=== PATIENT | female | born 1940 ===

== ENCOUNTER 2025-06-15 11:21 | Outpatient (AMB) | payer MEDICARE, BC, SELFPAY ==
--- OUTSIDE RECORDS SUMMARY | 2025-06-15 12:39 | XMS_ITS | Encounter Summary ---
Author Organization [facility] Address [address] [place] [address] Phone Care Team Providers Care Fleet Dispatch Manager Name Role Phone Anisa Cummings MD, MPH Primary Care Provider + Encounter Details Date Type Department Care Team (Late st Contact Info) Description 05/27/2021 Procedure Pass [facility], [address] [address] Social History Tobacco Use Types Packs/Day Years Used Date Smoking Tobacco: Never Smokeless Tobacco: Never Alcohol Use Standard Drinks/Week Comments Yes 0 (1 standard drink = 0.6 oz pur e alcohol) rare Comments No Sex and Gender Information Value Date Recorded Sex Assigned at Female 09/15/2024 1:39 PM EST Legal Sex Female 10:12 PM EDT Gender Identity Female 09/15/2024 1:39 PM EST Sexual Orientation Not on file documented as of this encounter Plan of Treatment Not on file documented as of this encounter Visit Diagnoses Not on filedocumented in this encounter Care Teams Fleet Dispatch Manager Relationship Specialty Start Date End Date Anisa Cummings MD, MPH [address] [place] [phone] [email or web address] PCP - General Family Medicine 01/11/18 documented as of this encounter Additional Source Comments The information contained in this document represents components of the legal health record. It is not the complete legal health record.[facility]
== END 2025-06-15 11:27 | disposition home or self-care (01) ==
LOC: HO.HMGAL 11:21
PROVIDERS: Visit Provider Registered Nurse Emergency
DX: J30.89 Other allergic rhinitis (principal)
CPT/HCPCS: 95117; 95165

== ENCOUNTER 2025-07-13 12:46 | Outpatient (AMB) | payer MEDICARE, BC, SELFPAY ==
--- OUTSIDE RECORDS SUMMARY | 2025-07-13 17:28 | XMS_ITS | Encounter Summary ---
Author Organization [facility] Address [address] [facility] [address] [place] [address] Phone Care Team Providers Care Cat Scan Tech Name Role Phone Anisa Cummings MD, MPH Primary Care Provider + Encounter Details Date Type Department Care Team (Late st Contact Info) Description 05/22/2022 Procedure Pass [address] [address] Social History Tobacco Use Types Packs/Day Years Used Date Smoking Tobacco: Never Smokeless Tobacco: Never Alcohol Use Standard Drinks/Week Comments Yes 0 (1 standard drink = 0.6 oz pure alcohol) Glass of wine 3 to 4 times a year Comments No Sex and Gender Information Value Date Recorded Sex Assigned at Female 09/15/2024 1:39 PM EST Legal Sex Female 10:12 PM EDT Gender Identity Female 09/15/2024 1:39 PM EST Sexual Orientation Not on file documented as of this encounter Plan of Treatment Upcoming Encounters Date Type Department Care Team (Late st Contact Info) Description 07/09/2025 Procedure Pass [address] [address] 03/01/2026 1:15 PM EDT Appointment [address] [address] Phs Mammo Self, Referral documented as of this encounter Visit Diagnoses Not on filedocumented in this encounter Care Teams Cat Scan Tech Relationship Specialty Start Date End Date Anisa Cummings MD, MPH [address] [place] [phone] [email or web address] PCP - General Family Medicine 01/11/18 documented as of this encounter Additional Source Comments The information contained in this document represents components of the legal health record. It is not the complete legal health record.[facility]
--- OUTSIDE RECORDS SUMMARY | 2025-07-13 17:28 | XMS_ITS | Encounter Summary ---
Author Organization [facility] Address [address] [address] Phone Care Team Providers Care Satellite Communications Operator Name Role Phone Anisa Cummings MD, MPH Primary Care Provider + Encounter Details Date Type Department Care Team (Late Contact Info) Description 05/27/2021 Procedure Pass [address] [address] Social History Tobacco Use Types Packs/Day Years [...] st Contact Info) Description 07/09/2025 Procedure Pass [address] [address] 03/01/2026 1:15 PM EDT Appointment [address] [address] Phs Mammo Self, Referral documented as of this encounter Visit Diagnoses Not on filedocumented in this encounter Care Teams Satellite Communications Operator Relationship Specialty Start Date End Date Anisa Cummings MD, MPH [address] [place] [phone] [email or web address] PCP - General Family Medicine 01/11/18 documented as of this encounter Additional Source Comments The information contained in this document represents components of the legal health record. It is not the complete legal health record.[facility]
--- OUTSIDE RECORDS SUMMARY | 2025-07-13 17:28 | XMS_ITS | Encounter Summary ---
Author Organization [facility] Address [address] [facility] [address] [place] [address] Phone Care Team Providers Care Catalyst Plant Supervisor Name Role Phone Anisa Cummings MD, MPH Primary Care Provider + Encounter Details Date Type Department Care Team (Late st Contact Info) Description 05/31/[address] [address] Social History Tobacco Use Types Packs/Day Years Used Date Smoking Tobacco: Never Smokeless Tobacco: Never Alcohol Use Standard Drinks/Week Comments Yes 0 (1 standard drink = 0.6 oz pure alcohol) Glass of wine 3 to 4 times a year Education Answer Date Recorded Are you interested in more education? Not on sybil e 02/23/2023 Are you concerned about learning? Not on file 02/23/2023 No 02/23/2023 No 02/23/2023 Digital Access Answer Date Recorded No 03/24/2023 No 03/24/2023 Reliable internet access at home? Not on file 03/24/2023 Device with a working camera? Not on file Comments No Sex and Gender Information Value Date Recorded Sex Assigned at Female 09/15/2024 1:39 PM EST Legal Sex Female 10:12 PM EDT Gender Identity Female 09/15/2024 1:39 PM EST Sexual Orientation Not on file documented as of this encounter Plan of Treatment Upcoming Encounters Date Type Department Care Team (Late st Contact Info) Description 07/09/[address] [address] 03/01/2026 1:15 PM EDT Appointment [facility], Mammography- [facility] [address] [place] [address] Phs Mammo Self, Referral documented as of this encounter Visit Diagnoses Not on filedocumented in this encounter Care Teams Catalyst Plant Supervisor Relationship Specialty Start Date End Date Anisa Cummings MD, MPH [address] [place] [phone] [email or web address] PCP - General Family Medicine 01/11/18 documented as of this encounter Additional Source Comments The information contained in this document represents components of the legal health record. It is not the complete legal health record.[facility]
--- OUTSIDE RECORDS SUMMARY | 2025-07-13 17:28 | XMS_ITS | Encounter Summary ---
Author Organization [facility] Address [address] [facility] [address] [place] [address] Phone Care Team Providers Care Roller Varnisher Name Role Phone Anisa Cummings MD, MPH Primary Care Provider + Encounter Details Date Type Department Care Team (Late Contact Info) Description 01/25/2021 Procedure Pass [facility] Endoscopy Admitting Dept Virtual Department [address] [place] [phone] Social History Tobacco Use Types Packs/Day Years [...] Encounters Date Type Department Care Team (Late Contact Info) Description 07/09/2025 Procedure Pass [address] [address] 03/01/2026 1:15 PM EDT Appointment [address] [address] Phs Mammo Self, Referral documented as of this encounter Visit Diagnoses Not on filedocumented in this encounter Care Teams Roller Varnisher Relationship Specialty Start Date End Date Anisa Cummings MD, MPH [address] [place] [phone] [email or web address] PCP - General Family Medicine 01/11/18 documented as of this encounter Additional Source Comments The information contained in this document represents components of the legal health record. It is not the complete legal health record.[facility]
--- OUTSIDE RECORDS SUMMARY | 2025-07-13 17:28 | XMS_ITS | Encounter Summary ---
Author Organization [facility] Address [address] [place] [address] Phone Care Team Providers Care Agriculture Laborer Name Role Phone Anisa Cummings MD, MPH Primary Care Provider + Encounter Details Date Type Department Care Team (Latest Contact Info) Description 07/09/2025 Transcribe Orders Virtual Department [address] [place] [address] Self-Referred, Patient Breast screening (Primary Dx) Social History Tobacco Use Types Packs/Day Years [...] with a working camera? Not on file Intimate Partner Violence Answer Date R ecorded Are you denied basic needs s uch as food, clothing, or medical care? No 09/15/2024 In the past 12 months have y ou been in a relationship with a person who hurts, threatens, or tries to control you? No 09/15/2024 Are you denied basic needs s uch as food, clothing, or medical care? No 09/15/2024 In the past 12 months have y ou been in a relationship with a person who hurts, threatens, or tries to control you? No 09/15/2024 Comments No Sex and Gender Information Value Date Recorded Sex Assigned at Female 09/15/2024 1:39 PM EST Legal Sex Female 10:12 PM EDT Gender Identity Female 09/15/2024 1:39 PM EST Sexual Orientation Not on file documented as of this encounter Plan of Treatment Upcoming Encounters Date Type Department Care Team (Late st Contact Info) Description 07/09/2025 Procedure Pass [address] [address] 03/01/2026 1:15 PM EDT Appointment [address] [address] Phs Mammo Self, Referral Scheduled Orders Name Type Priority Associated Diagnoses Orde r Schedule Mammogram Screening (Bilateral) Imaging Routine Breast screening Expected: 08/08/2025, Expires: 07/09/2026 documented as of this encounter Visit Diagnoses Diagnosis Breast screening- Primary Breast screening, unspecified documented in this encounter Care Teams Agriculture Laborer Relationship Specialty Start Date End Date Anisa Cummings MD, MPH [address] [place] [phone] [email or web address] PCP - General Family Medicine 01/11/18 documented as of this encounter Additional Source Comments The information contained in this document represents components of the legal health record. It is not the complete legal health record.[facility]
--- OUTSIDE RECORDS SUMMARY | 2025-07-13 17:28 | XMS_ITS | Encounter Summary ---
Author Organization [facility] Address [address] [facility] [address] [place] [address] Phone Care Team Providers Care Photovoltaic Solar Cell Designer Name Role Phone Anisa Cummings MD, MPH Primary Care Provider + Encounter Details Date Type Department Care Team (Late st Contact Info) Description 09/15/2024 Procedure Pass [facility], Ct Scan - [address] [address] Social History Tobacco Use Types Packs/Day Years [...] on file documented as of this encounter Functional Status * Calculated C-SSRS Risk Score (Lifetime/Recent) Answer Date of Assessment Author No Risk Indicated 09/15/2024 1:39 PM EST Priya Courtney, GISELLA * [place] Suicide Severity Rating Scale (Screener/Recent Self-Report) Question Answer Date of Assessment Author 1. Wish to be (Past 1 Month) No 024 1:39 PM Priya Armstrong, GISELLA 2. Non-Specific Active Suici shereen Thoughts (Past 1 Month) No 09/15/2024 1:39 PM Priya Armstrong, GISELLA 6. Suicidal Behavior (Lifetime) No 1:39 PM Priya Armstrong, GISELLA documented as of this encounter Plan of Treatment Upcoming Encounters Date Type Department Care Team (Late st Contact Info) Description 07/09/2025 Procedure Pass [address] [address] 03/01/2026 1:15 PM EDT Appointment [address] [address] Phs Mammo Self, Referral documented as of this encounter Visit Diagnoses Not on filedocumented in this encounter Care Teams Photovoltaic Solar Cell Designer Relationship Specialty Start Date End Date Anisa Cummings MD, MPH [address] [place] [phone] [email or web address] PCP - General Family Medicine 01/11/18 documented as of this encounter Additional Source Comments The information contained in this document represents components of the legal health record. It is not the complete legal health record.[facility]
--- OUTSIDE RECORDS SUMMARY | 2025-07-13 17:28 | XMS_ITS | Encounter Summary ---
Author Organization [facility] Address [address] [address] Phone Care Team Providers Care Transmission And Coordination Engineer Name Role Phone Anisa Cummings MD, MPH Primary Care Provider + Encounter Details Date Type Department Care Team (Late st Contact Info) Description 12/24/2019 Ancillary Orders Virtual Department [address] [place] [address] Anisa Cummings MD, MPH [address] [place] [phone] [email or web address] Breast screening Social History Tobacco Use Types Packs/Day Years Used Date Smoking Tobacco: Never Smokeless Tobacco: Never Comments No Sex and Gender Information Value Date Recorded Sex Assigned at Female 09/15/2024 1:39 PM EST Legal Sex Female 10:12 PM EDT Gender Identity Female 09/15/2024 1:39 PM EST Sexual Orientation Not on file documented as of this encounter Plan of Treatment Upcoming Encounters Date Type Department Care Team (Late st Contact Info) Description 07/09/2025 Procedure Pass [address] [address] 03/01/2026 1:15 PM EDT Appointment [address] [address] Phs Mammo Self, Referral documented as of this encounter Results * BI MAMMOGRAM SCREENING WITH TOMOSYNTHESIS WITH CAD (BILATERAL) (07/27/2020 11:59 AM EDT) Anatomical Region Laterality Modality Breast Left, Breast Right, Breast Bilateral Bila teral Mammography 07/27/2020 1:27 PM EDT Impressions 07/27/2020 1:31 PM EDT No findings suspicious for malignancy are identified. In the absence of a worrisome palpable abnormality, annual screening mammography is recommended. BI-RADS CATEGORY 1 - NEGATIVE DENSITY: There are scattered fibroglandular densities. Narrative 07/27/2020 1:31 PM EDT COMPARISON: 02/12/2014 through 02/24/2019 Bilateral 3-D tomosynthesis with 2-D reconstructions in the CC and MLO projection. Computer-aided detection system also utilized. No new mass, asymmetry, architectural distortion or suspicious calcifications have become apparent on either side. Anisa Cummings MD, MPH IMG MG EXAMS Final Re sult documented in this encounter Visit Diagnoses Diagnosis Breast screening Breast screening, unspecified Breast screening Breast screening, unspecified documented in this encounter Care Teams Transmission And Coordination Engineer Relationship Specialty Start Date End Date Anisa Cummings MD, MPH [address] [place] [phone] [email or web address] PCP - General Family Medicine 01/11/18 documented as of this encounter Additional Source Comments The information contained in this document represents components of the legal health record. It is not the complete legal health record.[facility]
--- OUTSIDE RECORDS SUMMARY | 2025-07-13 17:28 | XMS_ITS | Encounter Summary ---
Author Organization [facility] Address [address] [facility] [address] [place] [address] Phone Care Team Providers Care Meat Seafood Associate Name Role Phone Anisa Cummings MD, MPH Primary Care Provider + Encounter Details Date Type Department Care Team (Latest Contact Info) Description 05/31/2023 Transcribe Orders Virtual Department [address] [place] [address] Anisa Cummings MD, MPH [address] [place] [address] [email or web address] Breast screening (Primary Dx) Social History Tobacco [...] st Contact Info) Description 07/09/2025 Procedure Pass [address] [address] 03/01/2026 1:15 PM EDT Appointment [facility] [address] [place] [address] Phs Mammo Self, Referral documented as of this encounter Results * BI MAMMOGRAM SCREENING WITH TOMOSYNTHESIS WITH CAD (BILATERAL) (08/01/2023 1:56 PM EDT) Anatomical Region Laterality Modality Breast Left, Breast Right, Breast Bilateral Bila teral Mammography 08/03/2023 4:00 PM EDT Impressions 08/03/2023 4:02 PM EDT No findings suspicious for malignancy are identified. In the absence of a worrisome palpable abnormality, annual screening mammography is recommended. BI-RADS CATEGORY: 1 - Negative. DENSITY: There are scattered fibroglandular densities. Narrative 08/03/2023 4:02 PM EDT AVAILABLE COMPARISON: 07/31/2022 through 02/19/2017 Bilateral 3-D tomosynthesis with 2-D reconstructions in the CC and MLO projection. Computer-aided detection system was utilized. No new mass, asymmetry, architectural distortion or suspicious calcifications have become apparent in either breast. Procedure Note Adalberto Cao MD - 08/03/2023 AVAILABLE COMPARISON: 07/31/2022 through 02/19/2017 Bilateral 3-D tomosynthesis with 2-D reconstructions in the CC and MLOprojection. Computer-aided detection system was utilized. No new mass, asymmetry, architectural distortion or suspiciouscalcifications have become apparent in either breast. IMPRESSION: No findings suspicious for malignancy are identified. In the absence of aworrisome palpable abnormality, annual screening mammography isrecommended. BI-RADS CATEGORY: 1 - Negative. DENSITY: There are scattered fibroglandular densities. Anisa Cummings MD, MPH IMG MG EXAMS Final Re sult documented in this encounter Visit Diagnoses Diagnosis Breast screening- Primary Breast screening, unspecified Breast screening Breast screening, unspecified documented in this encounter Care Teams Meat Seafood Associate Relationship Specialty Start Date End Date Anisa Cummings MD, MPH [address] [place] [phone] [email or web address] PCP - General Family Medicine 01/11/18 documented as of this encounter Additional Source Comments The information contained in this document represents components of the legal health record. It is not the complete legal health record.[facility]
--- OUTSIDE RECORDS SUMMARY | 2025-07-13 17:28 | XMS_ITS | Clinical Summary ---
Author Organization [facility] Address [address] [facility] [address] [place] [address] Phone Care Team Providers Care Naphthalene Operator Name Role Phone Anisa Cummings MD, MPH Primary Care Provider + Allergies Active Allergy Reactions Criticality Noted Date Comments Codeine 09/04/2019 Penicillins 09/04/2019 Medications NIFEdipine (PROCARDIA XL) 90 MG 24 hr tablet Take 90 mg by mouth daily. Active levothyroxine (SYNTHROID, LEVOTHROID) 100 MCG tablet Take 100 mcg by mouth every morning. Active simvastatin (ZOCOR) 20 MG tablet Take 20 mg by mouth nightly at bedtime. Active lisinopril (PRINIVIL,ZESTR IL) 20 MG tablet Take 20 mg by mouth daily. Active mirabegron (MYRBETRIQ) 25 mg Tb24 Take 25 mg by mouth daily. Active multivitamin-mi nerals-lutein (CENTRUM SILVER) Tab Take 1 tablet by mouth daily. Active Encounters Date Type Department Care Team Description 07/09/2025 Transcribe Orders Virtual Department [address] [place] [address] Self-Referred, Patient Breast screening (Primary Dx) from Last 3 Months Immunizations Immunization Administration Dates Next Due COVID-19 (Pre-08/20) Pfizer Vaccine, mRNA, PF 02/05/2021,01/15/2021 Tdap 09/15/2024, 4(Deferred: Contraindication) Family History Medical History Relation Comments Breast cancer Neg Hx Social History Tobacco Use Types Packs/Day Years [...] PM EST Sexual Orientation Not on file Last Filed Vital Signs Vital Sign Reading Time Taken Comments Blood Pressure 121/74 09/15/2024 4:29 PM EST Pulse 92 09/15/2024 4:29 PM EST Temperature 35.8 C (96.5 F) 09/15/2024 4:29 PM EST Respiratory Rate 20 09/15/2024 4:29 PM EST Oxygen Saturation 98% 09/15/2024 4:29 PM EST Inhaled Oxygen Concentration - - Weight 59.9 kg (132 lb) 01/25/2021 10:45 AM EDT Height 167.6 cm (5' 6 ) 09/15/2024 1:42 PM EST Body Mass Index 21.31 01/25/2021 10:45 AM EDT Plan of Treatment Upcoming Encounters Date Type Department Care Team (Late st Contact Info) Description 07/09/2025 Procedure Pass [address] [address] 03/01/2026 1:15 PM EDT Appointment [address] [address] Phs Mammo Self, Referral Health Maintenance Due Date Last Done Comments CREATININE LEVEL 1941 POTASSIUM LEVEL 1941 TSH LEVEL 1941 DEPRESSION SCREENING 1953 OSTEOPOROSIS SCREENING INITIAL (ONE-TIME) 2006 ZOSTER VACCINES (2 of 3) 11/27/2007 10/02/2007 RSV VACCINE (1 - 1-dose 75+ series) 2016 PNEUMOCOCCAL VACCINES (50+ years) (2 of 2 - PPSV23) 04/20/2017 04/20/2016 INFLUENZA VACCINE (#1) 2025 , 08/19/2022, 08/19/2021, Additional history exists COVID-19 VACCINE ( season) 2025 08/09/2023, 08/22/2022, 08/19/2021, Additional history exists Adult Td,Tdap Booster 09/15/2034 09/15/2024 , 10/28/2020, 02/17/2010, Additional history exists HEPATITIS A VACCINES Aged Out No long er eligible based on patient's age to complete this topic HIB VACCINES Aged Out No longer eligi ble based on patient's age to complete this topic MENINGOCOCCAL VACCINES (ACWY) Aged Out No longer eligible based on patient's age to complete this topic MENINGOCOCCAL VACCINES (B) Aged Out N o longer eligible based on patient's age to complete this topic Medical Devices Not on file Insurance MEDICARE PART A & B [facility] OUT [facility] INDEMNITY MEDICARE PART A & B [facility] INDEMNITY MEDICARE PART A & B [facility] OUT [facility] INDEMNITY MEDICARE PART A & B [facility] OUT OF STATE INDEMNITY MEDICARE PART A & B OUT [facility] INDEMNITY MEDICARE PART A & B [facility] OUT [facility] INDEMNITY MEDICARE PART A & B [facility] INDEMNITY MEDICARE PART A & B [facility] OUT [facility] INDEMNITY MEDICARE PART A & B [facility] OUT [facility] INDEMNITY Care Teams Naphthalene Operator Relationship Specialty Start Date End Date Anisa Cummings MD, MPH [address] [place] [phone] [email or web address] PCP - General Family Medicine 01/11/18 Additional Source Comments The information contained in this document represents components of the legal health record. It is not the complete legal health record.[facility]
--- OUTSIDE RECORDS SUMMARY | 2025-07-13 17:28 | XMS_ITS | Encounter Summary ---
Author Organization [facility] Address [address] [facility] [address] [place] [address] Phone Care Team Providers Care Negative Stripper Name Role Phone Anisa Cummings MD, MPH Primary Care Provider + Encounter Details Date Type Department Care Team (Latest Contact Info) Description 05/29/2024 Transcribe Orders Virtual Department [address] [place] [address] Anisa Cummings MD, MPH [address] [place] [address] [email or web address] Breast screening (Primary Dx) Social History Tobacco [...] st Contact Info) Description 07/09/2025 Procedure Pass [address] [address] 03/01/2026 1:15 PM EDT Appointment [address] [address] Phs Mammo Self, Referral documented as of this encounter Results * BI MAMMOGRAM SCREENING WITH TOMOSYNTHESIS WITH CAD (BILATERAL) (09/15/2024 12:46 PM EST) Anatomical Region Laterality Modality Breast Left, Breast Right, Breast Bilateral Bila teral Mammography 09/16/2024 8:37 AM EST Impressions 09/16/2024 8:38 AM EST No mammographic evidence of malignancy in either breast. Annual screening mammography is recommended. BI-RADS 1 NEGATIVE The patient will be notified of the results and recommendations. Narrative 09/16/2024 8:38 AM EST BI MAMMOGRAM SCREENING WITH TOMOSYNTHESIS WITH CAD (BILATERAL) Additional patient information: Screening. COMPARISON: Comparison is made with relevant prior imaging. Breast composition: There are scattered areas of fibroglandular density. FINDINGS: No abnormal masses, suspicious calcifications, or other significant findings are identified mammographically in either breast. Procedure Note Maite Ramsay MD - 09/16/2024 BI MAMMOGRAM SCREENING WITH TOMOSYNTHESIS WITH CAD (BILATERAL) Additional patient information: Screening. COMPARISON: Comparison is made with relevant prior imaging. Breast composition: There are scattered areas of fibroglandular density. FINDINGS: No abnormal masses, suspicious calcifications, or other significantfindings are identified mammographically in either breast. IMPRESSION: No mammographic evidence of malignancy in either breast. Annual screening mammography is recommended. BI-RADS 1 NEGATIVE The patient will be notified of the results and recommendations. Anisa Cummings MD, MPH IMG MG EXAMS Final Re sult documented in this encounter Visit Diagnoses Diagnosis Breast screening- Primary Breast screening, unspecified Breast screening Breast screening, unspecified documented in this encounter Care Teams Negative Stripper Relationship Specialty Start Date End Date Anisa Cummings MD, MPH [address] [place] [phone] [email or web address] PCP - General Family Medicine 01/11/18 documented as of this encounter Additional Source Comments The information contained in this document represents components of the legal health record. It is not the complete legal health record.[facility]
--- OUTSIDE RECORDS SUMMARY | 2025-07-13 17:28 | XMS_ITS | Encounter Summary ---
Author Organization [facility] Address 399 [facility] [address] [place] [address] Phone Care Team Providers Care Aluminum Welder Name Role Phone Anisa Cummings MD, MPH Primary Care Provider + Encounter Details Date Type Department Care Team (Late st Contact Info) Description 12/25/2018 Ancillary Orders Virtual Department [address] [place] [address] Anisa Cummings MD, MPH [address] [place] [phone] [email or web address] Breast screening Social History Tobacco Use Types Packs/Day Years Used Date Smoking Tobacco: Never Assessed Comments No Sex and Gender Information Value Date Recorded Sex Assigned at Female 09/15/2024 1:39 PM EST Legal Sex Female 10:12 PM EDT Gender Identity Female 09/15/2024 1:39 PM EST Sexual Orientation Not on file documented as of this encounter Plan of Treatment Upcoming Encounters Date Type Department Care Team (Late st Contact Info) Description 07/09/2025 Procedure Pass [address] [address] 03/01/2026 1:15 PM EDT Appointment [address] [address] Phs Mammo Self, Referral documented as of this encounter Results * BI MAMMOGRAM SCREENING WITH TOMOSYNTHESIS WITH CAD (BILATERAL) (02/24/2019 11:06 AM EDT) Anatomical Region Laterality Modality Breast Left, Breast Right, Breast Bilateral Bila teral Mammography 02/24/2019 1:39 PM EDT Impressions 02/24/2019 1:40 PM EDT Stable appearance relative to prior imaging. No findings suggestive of malignancy are seen. BI-RADS CATEGORY: 2 - Benign finding. DENSITY: There are scattered fibroglandular densities. POS - [id number] Narrative 02/24/2019 1:40 PM EDT Full-field digital mammography is obtained with computer-aided detection. Comparison with prior imaging from 02/21/2018 is made with older imaging dating back as far as 02/10/2013 also reviewed. There is scattered fibroglandular density evident in the breasts. In addition to 2-D C view imaging, tomosynthesis images are obtained in two projections of each breast. A small nodular density in the outer right breast is unchanged. Scattered coarsened macrocalcifications are also unchanged.. No dominant soft tissue mass of concern, suspicious cluster of calcifications, significant interval skin changes, or architectural distortion is identified. Procedure Note Haja Floyd MD - 02/24/2019 Full-field digital mammography is obtained with computer-aided detection.Comparison with prior imaging from 02/21/2018 is made with older imagingdating back as far as 02/10/2013 also reviewed. There is scattered fibroglandular density evident in the breasts. Inaddition to 2-D C view imaging, tomosynthesis images are obtained in twoprojections of each breast. A small nodular density in the outer right breast is unchanged. Scatteredcoarsened macrocalcifications are also unchanged.. No dominant softtissue mass of concern, suspicious cluster of calcifications, significantinterval skin changes, or architectural distortion is identified. IMPRESSION: Stable appearance relative to prior imaging. No findings suggestive ofmalignancy are seen. BI-RADS CATEGORY: 2 - Benign finding. DENSITY: There are scattered fibroglandular densities. POS - [id number] Anisa Cummings MD, MPH IMG MG EXAMS Final Re sult documented in this encounter Visit Diagnoses Diagnosis Breast screening Breast screening, unspecified Breast screening Breast screening, unspecified documented in this encounter Care Teams Aluminum Welder Relationship Specialty Start Date End Date Anisa Cummings MD, MPH [address] [place] [phone] [email or web address] PCP - General Family Medicine 01/11/18 documented as of this encounter Additional Source Comments The information contained in this document represents components of the legal health record. It is not the complete legal health record.[facility]
--- OUTSIDE RECORDS SUMMARY | 2025-07-13 17:28 | XMS_ITS | Encounter Summary ---
Author Organization [facility] Address [address] [address] Phone Care Team Providers Care Table Machine Operator Name Role Phone Anisa Cummings MD, MPH Primary Care Provider + Encounter Details Date Type Department Care Team (Late st Contact Info) Description 06/29/2020 Procedure Pass [address] [address] Social History Tobacco Use Types Packs/Day Years [...] st Contact Info) Description 07/09/2025 Procedure Pass [address] [address] 03/01/2026 1:15 PM EDT Appointment [address] [address] Phs Mammo Self, Referral documented as of this encounter Visit Diagnoses Not on filedocumented in this encounter Care Teams Table Machine Operator Relationship Specialty Start Date End Date Anisa Cummings MD, MPH [address] [place] [phone] [email or web address] PCP - General Family Medicine 01/11/18 documented as of this encounter Additional Source Comments The information contained in this document represents components of the legal health record. It is not the complete legal health record.[facility]
--- OUTSIDE RECORDS SUMMARY | 2025-07-13 17:28 | XMS_ITS | Encounter Summary ---
Author Organization [facility] Address [address] [employer] [facility] [address] [place] [address] Phone Care Team Providers Care Crankshaft Grinder Name Role Phone Anisa Cummings MD, MPH Primary Care Provider + Encounter Details Date Type Department Care Team (Late st Contact Info) Description 09/15/2024 Procedure Pass [facility], Ct Scan - [address] [address] Social History Tobacco Use Types Packs/Day Years [...] 1:39 PM EST Priya Courtney, GISELLA * [place] Suicide Severity Rating Scale (Screener/Recent Self-Report) Question [...] st Contact Info) Description 07/09/2025 Procedure Pass [address] [address] 03/01/2026 1:15 PM EDT Appointment [address] [address] Phs Mammo Self, Referral documented as of this encounter Visit Diagnoses Not on filedocumented in this encounter Care Teams Crankshaft Grinder Relationship Specialty Start Date End Date Anisa Cummings MD, MPH [address] [place] [phone] [email or web address] PCP - General Family Medicine 01/11/18 documented as of this encounter Additional Source Comments The information contained in this document represents components of the legal health record. It is not the complete legal health record.[facility]
--- OUTSIDE RECORDS SUMMARY | 2025-07-13 17:28 | XMS_ITS | Encounter Summary ---
Author Organization [facility] Address [address] [facility] [address] [place] [address] Phone Care Team Providers Care Script Coordinator Name Role Phone Anisa Cummings MD, MPH Primary Care Provider + Encounter Details Date Type Department Care Team (Late st Contact Info) Description 01/11/2018 Ancillary Orders Virtual Department [address] [place] [address] Anisa Cummings MD, MPH [address] [place] [address] [email or web address] Breast screening Social History Tobacco Use Types Packs/Day Years Used Date Smoking Tobacco: Never Assessed Comments Unknown Sex and Gender Information Value Date Recorded Sex Assigned at Female 09/15/2024 1:39 PM EST Legal Sex Female 10:12 PM EDT Gender Identity Female 09/15/2024 1:39 PM EST Sexual Orientation Not on file documented as of this encounter Plan of Treatment Upcoming Encounters Date Type Department Care Team (Late st Contact Info) Description 07/09/2025 Procedure Pass [address] [address] 03/01/2026 1:15 PM EDT Appointment [address] [address] Phs Mammo Self, Referral documented as of this encounter Results * BI MAMMOGRAM SCREENING WITH TOMOSYNTHESIS WITH CAD (BILATERAL) (02/21/2018 11:29 AM EDT) Anatomical Region Laterality Modality Breast Left, Breast Right, Breast Bilateral Bila teral Mammography 02/21/2018 3:02 PM EDT Impressions 02/21/2018 3:07 PM EDT No mammographic change indicative of malignancy. Annual screening is recommended. BI-RADS CATEGORY: 2 - Benign finding. DENSITY: There are scattered fibroglandular densities. POS -[id number] Narrative 02/21/2018 3:07 PM EDT Bilateral full-field digital screening mammography is obtained and read in conjunction with computer-aided detection. Tomosynthesis as well as 2-D C view imaging of both breasts in two planes also obtained. Comparison made to multiple prior, most recent 02/19/2017, and most remote 02/08/2012. No dominant mass, architectural distortion, worrisome asymmetry, or suspicious calcification is identified. No skin or nipple finding of concern is appreciated. Small waxing and waning nodular areas noted bilaterally. No worrisome lesions seen. Scattered coarse calcifications again noted. Post therapy changes again noted on the left. Procedure Note Darlyn Correia MD - 02/21/2018 Bilateral full-field digital screening mammography is obtained and read inconjunction with computer-aided detection. Tomosynthesis as well as 2-D Cview imaging of both breasts in two planes also obtained. Comparison madeto multiple prior, most recent 02/19/2017, and most remote 02/08/2012. No dominant mass, architectural distortion, worrisome asymmetry, orsuspicious calcification is identified. No skin or nipple finding ofconcern is appreciated. Small waxing and waning nodular areas notedbilaterally. No worrisome lesions seen. Scattered coarse calcificationsagain noted. Post therapy changes again noted on the left. IMPRESSION: No mammographic change indicative of malignancy. Annual screening isrecommended. BI-RADS CATEGORY: 2 - Benign finding. DENSITY: There are scattered fibroglandular densities. POS -[id number] Anisa Cummings MD, MPH IMG MG EXAMS Final Re sult documented in this encounter Visit Diagnoses Diagnosis Breast screening Breast screening, unspecified Breast screening Breast screening, unspecified documented in this encounter Care Teams Script Coordinator Relationship Specialty Start Date End Date Anisa Cummings MD, MPH [address] [place] [phone] [email or web address] PCP - General Family Medicine 01/11/18 documented as of this encounter Additional Source Comments The information contained in this document represents components of the legal health record. It is not the complete legal health record.[facility]
--- OUTSIDE RECORDS SUMMARY | 2025-07-13 17:28 | XMS_ITS | Encounter Summary ---
Author Organization [facility] Address [address] [employer] [address] [place] [address] Phone Care Team Providers Care Senior Electrical Project Manager Name Role Phone Anisa Cummings MD, MPH Primary Care Provider + Encounter Details Date Type Department Care Team (Late st Contact Info) Description 05/29/[address] [address] Social History Tobacco Use Types Packs/Day Years [...] (Late st Contact Info) Description 07/09/[address] [address] 03/01/2026 1:15 PM EDT Appointment [facility], Mammography- [facility] [address] [place] [address] Phs Mammo Self, Referral documented as of this encounter Visit Diagnoses Not on filedocumented in this encounter Care Teams Senior Electrical Project Manager Relationship Specialty Start Date End Date Anisa Cummings MD, MPH [address] [place] [phone] [email or web address] PCP - General Family Medicine 01/11/18 documented as of this encounter Additional Source Comments The information contained in this document represents components of the legal health record. It is not the complete legal health record.[facility]
== END 2025-07-13 12:46 | disposition home or self-care (01) ==
LOC: HO.HMGAL 12:46
PROVIDERS: Visit Provider Registered Nurse Emergency
DX: J30.89 Other allergic rhinitis (principal)
CPT/HCPCS: 95117; 95165

== ENCOUNTER 2025-08-12 11:56 | Outpatient (AMB) | payer MEDICARE, BC, SELFPAY ==
--- OUTSIDE RECORDS SUMMARY | 2025-08-12 15:07 | XMS_ITS | Encounter Summary ---
Author Organization [facility] Address 399 [facility] [address] [place] [address] Phone Care Team Providers Care Vault Clerk Name Role Phone Anisa Cummings MD, MPH Primary Care Provider + Encounter Details Date Type Department Care Team (Late Contact Info) Description 01/25/2021 Procedure Pass [facility] Endoscopy Admitting Dept Virtual Department [address] [place] [address] Social History Tobacco Use Types Packs/Day Years [...] (Late Contact Info) Description 07/09/2025 Procedure Pass [address] [address] 03/01/2026 1:15 PM EDT Appointment [address] [address] Phs Mammo Self, Referral documented as of this encounter Visit Diagnoses Not on filedocumented in this encounter Care Teams Vault Clerk Relationship Specialty Start Date End Date Anisa Cummings MD, MPH [address] [place] [phone] [email or web address] PCP - General Family Medicine 01/11/18 documented as of this encounter Additional Source Comments The information contained in this document represents components of the legal health record. It is not the complete legal health record.[facility]
--- OUTSIDE RECORDS SUMMARY | 2025-08-12 15:07 | XMS_ITS | Encounter Summary ---
Author Organization [facility] Address [address] [employer] [facility] [address] [place] [address] Phone Care Team Providers Care Dye House Hand Name Role Phone Anisa Cummings MD, MPH Primary Care Provider + Encounter Details Date Type Department Care Team (Late st Contact Info) Description 05/22/2022 Procedure Pass [address] [address] Social History Tobacco Use Types Packs/Day Years [...] st Contact Info) Description 07/09/2025 Procedure Pass [address] [address] 03/01/2026 1:15 PM EDT Appointment [address] [address] Phs Mammo Self, Referral documented as of this encounter Visit Diagnoses Not on filedocumented in this encounter Care Teams Dye House Hand Relationship Specialty Start Date End Date Anisa Cummings MD, MPH [address] [place] [phone] [email or web address] PCP - General Family Medicine 01/11/18 documented as of this encounter Additional Source Comments The information contained in this document represents components of the legal health record. It is not the complete legal health record.[facility]
--- OUTSIDE RECORDS SUMMARY | 2025-08-12 15:07 | XMS_ITS | Encounter Summary ---
Author Organization [facility] Address 399 [facility] [address] [place] [address] Phone Care Team Providers Care Grades 1 Thru 6 Visiting Teacher Name Role Phone Anisa Cummings MD, MPH Primary Care Provider + Encounter Details Date Type Department Care Team (Late st Contact Info) Description 05/29/[address] [address] Social History Tobacco Use Types Packs/Day Years [...] (Late st Contact Info) Description 07/09/[address] [address] 03/01/2026 1:15 PM EDT Appointment [facility], Mammography- [facility] [address] [place] [address] Phs Mammo Self, Referral documented as of this encounter Visit Diagnoses Not on filedocumented in this encounter Care Teams Grades 1 Thru 6 Visiting Teacher Relationship Specialty Start Date End Date Anisa Cummings MD, MPH [address] [place] [phone] [email or web address] PCP - General Family Medicine 01/11/18 documented as of this encounter Additional Source Comments The information contained in this document represents components of the legal health record. It is not the complete legal health record.[facility]
--- OUTSIDE RECORDS SUMMARY | 2025-08-12 15:07 | XMS_ITS | Encounter Summary ---
Author Organization [facility] Address [address] [facility] [address] [place] [address] Phone Care Team Providers Care Network Systems Operator Name Role Phone Anisa Cummings MD, MPH Primary Care Provider + Encounter Details Date Type Department Care Team (Late st Contact Info) Description 09/15/2024 Procedure Pass [facility], Ct Scan - [address] [address] Social History Tobacco Use Types Packs/Day Years [...] 1:39 PM EST Priya Courtney, GISELLA * [place] Suicide Severity Rating Scale (Screener/Recent Self-Report) Question [...] st Contact Info) Description 07/09/2025 Procedure Pass [address] [address] 03/01/2026 1:15 PM EDT Appointment [address] [address] Phs Mammo Self, Referral documented as of this encounter Visit Diagnoses Not on filedocumented in this encounter Care Teams Network Systems Operator Relationship Specialty Start Date End Date Anisa Cummings MD, MPH [address] [place] [phone] [email or web address] PCP - General Family Medicine 01/11/18 documented as of this encounter Additional Source Comments The information contained in this document represents components of the legal health record. It is not the complete legal health record.[facility]
--- OUTSIDE RECORDS SUMMARY | 2025-08-12 15:07 | XMS_ITS | Clinical Summary ---
Author Organization [facility] Address 399 [employer] [facility] [address] [place] [address] Phone Care Team Providers Care News Gathering Technician Name Role Phone Anisa Cummings MD, MPH [...] Description 07/09/2025 Transcribe Orders Virtual Department [address] [place] [address] Self-Referred, Patient Breast screening (Primary Dx) from [...] st Contact Info) Description 07/09/2025 Procedure Pass [address] [address] 03/01/2026 1:15 PM EDT Appointment [address] [address] Phs Mammo Self, Referral Health Maintenance Due [...] file Insurance MEDICARE PART A & B [facility] OUT [facility] INDEMNITY MEDICARE PART A & B [facility] IN[facility] MEDICARE [facility] A & B [facility] OUT [facility] INDEMNITY MEDICARE PART A & B [facility] OUT OF STATE INDEMNITY MEDICARE PART A & B OUT [facility] INDEMNITY MEDICARE PART A & B [facility]DEMNITY MEDICARE PART A & B [facility] PART A & B [facility]DEMN[facility] MEDICARE PART A & B [facility] OUT [facility] INDEMNITY Care Teams News Gathering Technician Relationship Specialty Start Date End Date Anisa Cummings MD, MPH [address] [place] [phone] [email or web address] PCP - General Family Medicine 01/11/18 Additional Source Comments The information contained in this document represents components of the legal health record. It is not the complete legal health record.[facility]
--- OUTSIDE RECORDS SUMMARY | 2025-08-12 15:07 | XMS_ITS | Encounter Summary ---
Author Organization [facility] Address 399 [employer] [facility] [address] [place] [address] Phone Care Team Providers Care Packer Name Role Phone Anisa Cummings MD, MPH Primary Care Provider + Encounter Details Date Type Department Care Team (Late st Contact Info) Description 09/15/2024 Procedure Pass [facility], Ct Scan - [address] [address] Social History Tobacco Use Types Packs/Day Years [...] 1:39 PM EST Priya Courtney, GISELLA * [place] Suicide Severity Rating Scale (Screener/Recent Self-Report) Question [...] Contact Info) Description 07/09/2025 Procedure Pass [address] [address] 03/01/2026 1:15 PM EDT Appointment [address] [address] Phs Mammo Self, Referral documented as of this encounter Visit Diagnoses Not on filedocumented in this encounter Care Teams Packer Relationship Specialty Start Date End Date Anisa Cummings MD, MPH [address] [place] [phone] [email or web address] PCP - General Family Medicine 01/11/18 documented as of this encounter Additional Source Comments The information contained in this document represents components of the legal health record. It is not the complete legal health record.[facility]
--- OUTSIDE RECORDS SUMMARY | 2025-08-12 15:07 | XMS_ITS | Encounter Summary ---
Author Organization [facility] Address 399 [employer] [facility] [address] [place] [address] Phone Care Team Providers Care Electrician Ship Name Role Phone Anisa Cummings MD, MPH Primary Care Provider + Encounter Details Date Type Department Care Team (Latest Contact Info) Description 05/29/2024 Transcribe Orders Virtual Department 30 [place] [address] Anisa Cummings MD, MPH 70 [place] [address] [email or web address] Breast screening (Primary Dx) Social History Tobacco [...] Contact Info) Description 07/09/2025 Procedure Pass [address] [address] 03/01/2026 1:15 PM EDT Appointment [address] [address] Phs Mammo Self, Referral documented as of [...] notified of the results and recommendations. Anisa Cummnigs MD, MPH IMG MG EXAMS Final Re sult documented in this encounter Visit Diagnoses Diagnosis Breast screening- Primary Breast screening, unspecified Breast screening Breast screening, unspecified documented in this encounter Care Teams Electrician Ship Relationship Specialty Start Date End Date Anisa Cummings MD, MPH [address] [place] [phone] [email or web address] PCP - General Family Medicine 01/11/18 documented as of this encounter Additional Source Comments The information contained in this document represents components of the legal health record. It is not the complete legal health record.[facility]
--- OUTSIDE RECORDS SUMMARY | 2025-08-12 15:07 | XMS_ITS | Encounter Summary ---
Author Organization [facility] Address [address] [address] Phone Care Team Providers Care Whip Sawyer Name Role Phone Anisa Cummings MD, MPH Primary Care Provider + Encounter Details Date Type Department Care Team (Late Contact Info) Description 05/27/2021 Procedure Pass [address] [address] Social History Tobacco Use Types Packs/Day Years [...] st Contact Info) Description 07/09/2025 Procedure Pass [address] [address] 03/01/2026 1:15 PM EDT Appointment [address] [address] Phs Mammo Self, Referral documented as of this encounter Visit Diagnoses Not on filedocumented in this encounter Care Teams Whip Sawyer Relationship Specialty Start Date End Date Anisa Cummings MD, MPH [address] [place] [phone] [email or web address] PCP - General Family Medicine 01/11/18 documented as of this encounter Additional Source Comments The information contained in this document represents components of the legal health record. It is not the complete legal health record.[facility]
--- OUTSIDE RECORDS SUMMARY | 2025-08-12 15:07 | XMS_ITS | Encounter Summary ---
Author Organization [facility] Address [address] [address] Phone Care Team Providers Care Rules Examiner Name Role Phone Anisa Cummings MD, MPH Primary Care Provider + Encounter Details Date Type Department Care Team (Late st Contact Info) Description 12/24/2019 Ancillary Orders Virtual Department [address] [place] [address] Anisa Cummings MD, MPH [address] [place] [address] [email or web address] Breast screening Social History Tobacco Use Types [...] st Contact Info) Description 07/09/2025 Procedure Pass [address] [address] 03/01/2026 1:15 PM EDT Appointment [address] [address] Phs Mammo Self, Referral documented as of [...] unspecified documented in this encounter Care Teams Rules Examiner Relationship Specialty Start Date End Date Anisa Cummings MD, MPH [address] [place] [phone] [email or web address] PCP - General Family Medicine 01/11/18 documented as of this encounter Additional Source Comments The information contained in this document represents components of the legal health record. It is not the complete legal health record.[facility]
--- OUTSIDE RECORDS SUMMARY | 2025-08-12 15:07 | XMS_ITS | Encounter Summary ---
Author Organization [facility] Address [address] [place] [address] Phone Care Team Providers Care Jig Maker Name Role Phone Anisa Cummings MD, MPH Primary Care Provider + Encounter Details Date Type Department Care Team (Late st Contact Info) Description 06/29/2020 Procedure Pass [address] [address] Social History Tobacco Use Types Packs/Day Years [...] st Contact Info) Description 07/09/2025 Procedure Pass [address] [address] 03/01/2026 1:15 PM EDT Appointment [address] [address] Phs Mammo Self, Referral documented as of this encounter Visit Diagnoses Not on filedocumented in this encounter Care Teams Jig Maker Relationship Specialty Start Date End Date Anisa Cummings MD, MPH [address] [place] [phone] [email or web address] PCP - General Family Medicine 01/11/18 documented as of this encounter Additional Source Comments The information contained in this document represents components of the legal health record. It is not the complete legal health record.[facility]
--- OUTSIDE RECORDS SUMMARY | 2025-08-12 15:07 | XMS_ITS | Encounter Summary ---
Author Organization [facility] Address 399 [facility] [address] [place] [address] Phone Care Team Providers Care Elevator Installer Apprentice Name Role Phone Anisa Cummings MD, MPH Primary Care Provider + Encounter Details Date Type Department Care Team (Late st Contact Info) Description 01/11/2018 Ancillary Orders Virtual Department [address] [place] [address] Anisa Cummings MD, MPH [address] [place] [phone] [email or web address] Breast screening Social History Tobacco Use [...] st Contact Info) Description 07/09/2025 Procedure Pass [address] [address] 03/01/2026 1:15 PM EDT Appointment [address] [address] Phs Mammo Self, Referral documented as of [...] DENSITY: There are scattered fibroglandular densities. POS -[id number] Narrative 02/21/2018 3:07 PM EDT Bilateral full-field [...] DENSITY: There are scattered fibroglandular densities. POS -[id number] Anisa Cummings MD, MPH IMG MG EXAMS Final Re sult documented in this encounter Visit Diagnoses Diagnosis Breast screening Breast screening, unspecified Breast screening Breast screening, unspecified documented in this encounter Care Teams Elevator Installer Apprentice Relationship Specialty Start Date End Date Anisa Cummings MD, MPH [address] [place] [phone] [email or web address] PCP - General Family Medicine 01/11/18 documented as of this encounter Additional Source Comments The information contained in this document represents components of the legal health record. It is not the complete legal health record.[facility]
--- OUTSIDE RECORDS SUMMARY | 2025-08-12 15:07 | XMS_ITS | Encounter Summary ---
Author Organization [facility] Address 399 [facility] [address] [place] [address] Phone Care Team Providers Care Assayer Name Role Phone Anisa Cummings MD, MPH Primary Care Provider + Encounter Details Date Type Department Care Team (Late st Contact Info) Description 12/25/2018 Ancillary Orders Virtual Department [address] [place] [address] Anisa Cummings MD, MPH [address] [place] [address] [email or web address] Breast screening Social History Tobacco Use Types [...] st Contact Info) Description 07/09/2025 Procedure Pass [address] [address] 03/01/2026 1:15 PM EDT Appointment [address] [address] Phs Mammo Self, Referral documented as of [...] There are scattered fibroglandular densities. POS - [id number] Narrative 02/24/2019 1:40 PM EDT Full-field digital [...] There are scattered fibroglandular densities. POS - [id number] Anisa Cummings MD, MPH IMG MG EXAMS Final Re sult documented in this encounter Visit Diagnoses Diagnosis Breast screening Breast screening, unspecified Breast screening Breast screening, unspecified documented in this encounter Care Teams Assayer Relationship Specialty Start Date End Date Anisa Cummings MD, MPH [address] [place] [phone] [email or web address] PCP - General Family Medicine 01/11/18 documented as of this encounter Additional Source Comments The information contained in this document represents components of the legal health record. It is not the complete legal health record.[facility]
--- OUTSIDE RECORDS SUMMARY | 2025-08-12 15:08 | XMS_ITS | Encounter Summary ---
Author Organization [facility] Address [address] [employer] [facility] [address] [place] [address] Phone Care Team Providers Care Runner On Name Role Phone Anisa Cummings MD, MPH Primary Care Provider + Encounter Details Date Type Department Care Team (Late st Contact Info) Description 05/31/[address] [address] Social History Tobacco Use Types Packs/Day Years [...] (Late st Contact Info) Description 07/09/[address] [address] 03/01/2026 1:15 PM EDT Appointment [facility], Mammography- [facility] 30 [place] [address] Phs Mammo Self, Referral documented as of this encounter Visit Diagnoses Not on filedocumented in this encounter Care Teams Runner On Relationship Specialty Start Date End Date Anisa Cummings MD, MPH [address] [place] [phone] [email or web address] PCP - General Family Medicine 01/11/18 documented as of this encounter Additional Source Comments The information contained in this document represents components of the legal health record. It is not the complete legal health record.[facility]
--- OUTSIDE RECORDS SUMMARY | 2025-08-12 15:08 | XMS_ITS | Encounter Summary ---
Author Organization [facility] Address [address] [facility] [address] [place] [address] Phone Care Team Providers Care Technology Strategist Name Role Phone Anisa Cummings MD, MPH Primary Care Provider + Encounter Details Date Type Department Care Team (Latest Contact Info) Description 05/31/2023 Transcribe Orders Virtual Department 30 [place] [address] Anisa Cummings MD, MPH 70 [place] [address] [email or web address] Breast screening (Primary Dx) Social History Tobacco [...] st Contact Info) Description 07/09/2025 Procedure Pass [address] [address] 03/01/2026 1:15 PM EDT Appointment [facility] 30 [place] [address] Phs Mammo Self, Referral documented as of [...] unspecified documented in this encounter Care Teams Technology Strategist Relationship Specialty Start Date End Date Anisa Cummings MD, MPH [address] [place] [phone] [email or web address] PCP - General Family Medicine 01/11/18 documented as of this encounter Additional Source Comments The information contained in this document represents components of the legal health record. It is not the complete legal health record.[facility]
== END 2025-08-12 11:57 | disposition home or self-care (01) ==
LOC: HO.HMGAL 11:56
PROVIDERS: Visit Provider Registered Nurse Emergency
DX: J30.89 Other allergic rhinitis (principal)
CPT/HCPCS: 95117; 95165

== ENCOUNTER 2025-09-14 11:17 | Outpatient (AMB) | payer MEDICARE, BC, SELFPAY | END 2025-09-14 11:17 | disposition home or self-care (01) | LOC: HO.HMGAL 11:17 | PROVIDERS: PCP Family Medicine; Visit Provider Registered Nurse Emergency | DX: J30.89 Other allergic rhinitis (principal) | CPT/HCPCS: 95117; 95165 ==

== ENCOUNTER 2025-10-14 11:03 | Outpatient (AMB) | payer MEDICARE, BC, SELFPAY ==
--- OUTSIDE RECORDS SUMMARY | 2025-10-14 14:33 | XMS_ITS | Encounter Summary ---
Author Organization [facility] Address [email or web address] [place] [address] Phone Care Team Providers Care County Tax Assessor Name Role Phone Anisa Cummings MD, MPH Primary Care Provider + Encounter Details Date Type Department Care Team (Latest Contact Info) Description 07/09/2025 Transcribe Orders Virtual Department 30 [place] [address] Self-Referred, Patient Breast screening (Primary Dx) Social [...] st Contact Info) Description 07/09/2025 Procedure Pass [address] [address] 03/01/2026 1:15 PM EDT Appointment [address] [address] Phs Mammo Self, Referral Scheduled Orders Name Type Priority Associated Diagnoses Orde r Schedule Mammogram Screening (Bilateral) Imaging Routine Breast screening Expected: 08/08/2025, Expires: 07/09/2026 documented as of this encounter Visit Diagnoses Diagnosis Breast screening- Primary Breast screening, unspecified documented in this encounter Care Teams County Tax Assessor Relationship Specialty Start Date End Date Anisa Cummings MD, MPH [address] [place] [phone] [email or web address] PCP - General Family Medicine 01/11/18 documented as of this encounter Additional Source Comments The information contained in this document represents components of the legal health record. It is not the complete legal health record.[facility]
--- OUTSIDE RECORDS SUMMARY | 2025-10-14 14:34 | XMS_ITS | Encounter Summary ---
Author Organization [facility] Address [address] [employer] [facility] [address] [place] [address] Phone Care Team Providers Care Dividing Machine Operator Helper Name Role Phone Anisa Cummings MD, MPH Primary Care Provider + Encounter Details Date Type Department Care Team (Late st Contact Info) Description 05/29/[address] [address] Social History Tobacco Use Types Packs/Day Years [...] (Late st Contact Info) Description 07/09/[address] [address] 03/01/2026 1:15 PM EDT Appointment [facility], Mammography- [facility] 30 [place] [address] Phs Mammo Self, Referral documented as of this encounter Visit Diagnoses Not on filedocumented in this encounter Care Teams Dividing Machine Operator Helper Relationship Specialty Start Date End Date Anisa Cummings MD, MPH [address] [place] [phone] [email or web address] PCP - General Family Medicine 01/11/18 documented as of this encounter Additional Source Comments The information contained in this document represents components of the legal health record. It is not the complete legal health record.[facility]
--- OUTSIDE RECORDS SUMMARY | 2025-10-14 14:34 | XMS_ITS | Encounter Summary ---
Author Organization [facility] Address [address] [employer] [facility] [address] [place] [address] Phone Care Team Providers Care Insurance Policy Clerk Name Role Phone Anisa Cummings MD, MPH Primary Care Provider + Encounter Details Date Type Department Care Team (Latest Contact Info) Description 05/31/2023 Transcribe Orders Virtual Department 30 [place] [address] Anisa Cummings MD, MPH 70 [place] [address] [email or web address] Breast screening (Primary Dx) Social History Tobacco [...] st Contact Info) Description 07/09/2025 Procedure Pass [address] [address] 03/01/2026 1:15 PM EDT Appointment [facility] 30 [place] [address] Phs Mammo Self, Referral documented as of [...] unspecified documented in this encounter Care Teams Insurance Policy Clerk Relationship Specialty Start Date End Date Anisa Cummings MD, MPH [address] [place] [phone] [email or web address] PCP - General Family Medicine 01/11/18 documented as of this encounter Additional Source Comments The information contained in this document represents components of the legal health record. It is not the complete legal health record.[facility]
--- OUTSIDE RECORDS SUMMARY | 2025-10-14 14:34 | XMS_ITS | Encounter Summary ---
Author Organization [facility] Address 399 [facility] [address] [place] [address] Phone Care Team Providers Care Tractor Technician Name Role Phone Anisa Cummings MD, MPH Primary Care Provider + Encounter Details Date Type Department Care Team (Late Contact Info) Description 01/25/2021 Procedure Pass [facility]oscopy Admitting Dept Virtual Department [address] [place] [address] Social History Tobacco Use Types Packs/Day Years [...] (Late Contact Info) Description 07/09/2025 Procedure Pass [address] [address] 03/01/2026 1:15 PM EDT Appointment [address] [address] Phs Mammo Self, Referral documented as of this encounter Visit Diagnoses Not on filedocumented in this encounter Care Teams Tractor Technician Relationship Specialty Start Date End Date Anisa Cummings MD, MPH [address] [place] [phone] [email or web address] PCP - General Family Medicine 01/11/18 documented as of this encounter Additional Source Comments The information contained in this document represents components of the legal health record. It is not the complete legal health record.[facility]
--- OUTSIDE RECORDS SUMMARY | 2025-10-14 14:34 | XMS_ITS | Encounter Summary ---
Author Organization [facility] Address [address] [address] Phone Care Team Providers Care Radiation Control Specialist Name Role Phone Anisa Cummings MD, MPH Primary Care Provider + Encounter Details Date Type Department Care Team (Late st Contact Info) Description 06/29/2020 Procedure Pass [address] [address] Social History Tobacco Use Types Packs/Day Years [...] st Contact Info) Description 07/09/2025 Procedure Pass [address] [address] 03/01/2026 1:15 PM EDT Appointment [address] [address] Phs Mammo Self, Referral documented as of this encounter Visit Diagnoses Not on filedocumented in this encounter Care Teams Radiation Control Specialist Relationship Specialty Start Date End Date Anisa uCmmings MD, MPH [address] [place] [phone] [email or web address] PCP - General Family Medicine 01/11/18 documented as of this encounter Additional Source Comments The information contained in this document represents components of the legal health record. It is not the complete legal health record.[facility]
--- OUTSIDE RECORDS SUMMARY | 2025-10-14 14:34 | XMS_ITS | Encounter Summary ---
Author Organization [facility] Address [address] [employer] [address] [address] Phone Care Team Providers Care Product Analyst Name Role Phone Anisa Cummings MD, MPH Primary Care Provider + Encounter Details Date Type Department Care Team (Late Contact Info) Description 05/27/2021 Procedure Pass [address] [address] Social History Tobacco Use Types Packs/Day Years [...] st Contact Info) Description 07/09/2025 Procedure Pass [address] [address] 03/01/2026 1:15 PM EDT Appointment [address] [address] Phs Mammo Self, Referral documented as of this encounter Visit Diagnoses Not on filedocumented in this encounter Care Teams Product Analyst Relationship Specialty Start Date End Date Anisa Cummings MD, MPH [address] [place] [phone] [email or web address] PCP - General Family Medicine 01/11/18 documented as of this encounter Additional Source Comments The information contained in this document represents components of the legal health record. It is not the complete legal health record.[facility]
--- OUTSIDE RECORDS SUMMARY | 2025-10-14 14:34 | XMS_ITS | Clinical Summary ---
Author Organization [facility] Address 399 [email or web address] [facility] [address] [place] [address] Phone Care Team Providers Care Flight Information Expediter Name Role Phone Anisa Cummings MD, MPH [...] Take 1 tablet by mouth daily. Active Immunizations Immunization Administration Dates Next Due COVID-19 [...] st Contact Info) Description 07/09/2025 Procedure [address] [address] 03/01/2026 1:15 PM EDT Appointment [address] [address] Phs Mammo Self, Referral Health Maintenance Due Date Last Done Comments CREATININE LEVEL 1941 POTASSIUM LEVEL 1941 TSH LEVEL 1941 DEPRESSION SCREENING 1953 OSTEOPOROSIS SCREENING INITIAL (ONE-TIME) 2006 ZOSTER VACCINES (2 of 3) 11/27/2007 10/02/2007 RSV VACCINE (1 - 1-dose 75+ series) 2016 PNEUMOCOCCAL VACCINES (50+ years) (2 of 2 - PCV20 or PCV21) 04/20/2017 04/20/2016 INFLUENZA VACCINE (#1) 2025 , [...] file Insurance MEDICARE PART A & B [facility] OUT OF STATE INDEMNITY MEDICARE PART A & B [facility] OUT [facility] INDEMNITY MEDICARE PART A & B [facility] INDEMNITY MEDICARE PART A & B [facility] OUT [facility] INDEMNITY MEDICARE PART A & B [facility] OUT [facility] INDEMNITY MEDICARE PART A & B [facility] OUT OF [facility] INDEMNITY MEDICARE PART A & B [facility] INDEMNITY MEDICARE PART A & B [employer] OUT OF STATE INDEMNITY MEDICARE PART A & B [facility] OUT OF [facility] INDEMNITY Care Teams Flight Information Expediter Relationship Specialty Start Date End Date Anisa Cummings MD, MPH [address] [place] [phone] [email or web address] PCP - General Family Medicine 01/11/18 Additional Source Comments The information contained in this document represents components of the legal health record. It is not the complete legal health record.[facility]
--- OUTSIDE RECORDS SUMMARY | 2025-10-14 14:34 | XMS_ITS | Encounter Summary ---
Author Organization [facility] Address 399 [facility] [address] [place] [address] Phone Care Team Providers Care Premium Service Representative Name Role Phone Anisa Cummings MD, MPH Primary Care Provider + Encounter Details Date Type Department Care Team (Late st Contact Info) Description 12/25/2018 Ancillary Orders Virtual Department [address] [place] [address] Anisa Cummings MD, MPH [address] [place] [phone] [email or web address] Breast screening [...] Contact Info) Description 07/09/2025 Procedure Pass [address] [address] 03/01/2026 1:15 PM EDT Appointment [address] [address] Phs Mammo Self, Referral documented as of [...] There are scattered fibroglandular densities. POS - [id number] Narrative 02/24/2019 1:40 PM EDT Full-field digital [...] There are scattered fibroglandular densities. POS - [id number] Anisa Cummings MD, MPH IMG MG EXAMS Final Re sult documented in this encounter Visit Diagnoses Diagnosis Breast screening Breast screening, unspecified Breast screening Breast screening, unspecified documented in this encounter Care Teams Premium Service Representative Relationship Specialty Start Date End Date Anisa Cummings MD, MPH [address] [place] [phone] [email or web address] PCP - General Family Medicine 01/11/18 documented as of this encounter Additional Source Comments The information contained in this document represents components of the legal health record. It is not the complete legal health record.[facility]
--- OUTSIDE RECORDS SUMMARY | 2025-10-14 14:34 | XMS_ITS | Encounter Summary ---
Author Organization [facility] Address 399 [employer] [facility] [address] [place] [address] Phone Care Team Providers Care Formwork Carpenter Name Role Phone Anisa Cummings MD, MPH Primary Care Provider + Encounter Details Date Type Department Care Team (Latest Contact Info) Description 05/29/2024 Transcribe Orders Virtual Department 30 [place] [address] Anisa Cummings MD, MPH [address] [place] [address] [email or web address] Breast screening (Primary Dx) Social History Tobacco [...] st Contact Info) Description 07/09/2025 Procedure Pass [address] [address] 03/01/2026 1:15 PM EDT Appointment [address] [address] Phs Mammo Self, Referral documented as of [...] unspecified documented in this encounter Care Teams Formwork Carpenter Relationship Specialty Start Date End Date Ansia Cummings MD, MPH 70 [place] [phone] [email or web address] PCP - General Family Medicine 01/11/18 documented as of this encounter Additional Source Comments The information contained in this document represents components of the legal health record. It is not the complete legal health record.[facility]
--- OUTSIDE RECORDS SUMMARY | 2025-10-14 14:34 | XMS_ITS | Encounter Summary ---
Author Organization Formerly [facility] Address [address] [facility] [address] [place] [phone] Phone Care Team Providers Care Wood Pole Treater Name Role Phone Anisa Cummings MD, MPH Primary Care Provider + Encounter Details Date Type Department Care Team (Late st Contact Info) Description 01/11/2018 Ancillary Orders Virtual Department [address] [place] [phone] Anisa Cummings MD, MPH [address] [place] [phone] Breast screening Social History Tobacco Use Types [...] Contact Info) Description 07/09/[address] [address] 03/01/2026 1:15 PM EDT Appointment [address] [address] Phs Mammo Self, Referral documented as of [...] DENSITY: There are scattered fibroglandular densities. POS -[id number] Narrative 02/21/2018 3:07 PM EDT Bilateral full-field [...] DENSITY: There are scattered fibroglandular densities. POS -[id number] Anisa Cummings MD, MPH IMG MG EXAMS Final Re sult documented in this encounter Visit Diagnoses Diagnosis Breast screening Breast screening, unspecified Breast screening Breast screening, unspecified documented in this encounter Care Teams Wood Pole Treater Relationship Specialty Start Date End Date Anisa Cummings MD, MPH [address] [place] [phone] [email or web address] PCP - General Family Medicine 01/11/18 documented as of this encounter Additional Source Comments The information contained in this document represents components of the legal health record. It is not the complete legal health record.[facility]
--- OUTSIDE RECORDS SUMMARY | 2025-10-14 14:34 | XMS_ITS | Encounter Summary ---
Author Organization [facility] Address [address] [phone] Phone Care Team Providers Care Char Belt Operator Name Role Phone Anisa Cummings MD, MPH Primary Care Provider + Encounter Details Date Type Department Care Team (Late st Contact Info) Description 12/24/2019 Ancillary Orders Virtual Department [address] [place] [phone] Anisa Cummings MD, MPH [address] [place] [phone] [email or web address] Breast screening Social History Tobacco Use Types [...] Contact Info) Description 07/09/2025 Procedure Pass [address] [address] 03/01/2026 1:15 PM EDT Appointment [address] [address] Phs Mammo Self, Referral documented as of [...] unspecified documented in this encounter Care Teams Char Belt Operator Relationship Specialty Start Date End Date Anisa Cummings MD, MPH [address] [place] [phone] [email or web address] PCP - General Family Medicine 01/11/18 documented as of this encounter Additional Source Comments The information contained in this document represents components of the legal health record. It is not the complete legal health record.[facility]
--- OUTSIDE RECORDS SUMMARY | 2025-10-14 14:34 | XMS_ITS | Encounter Summary ---
Author Organization [facility] Address [address] [employer] [facility] [address] [place] [phone] Phone Care Team Providers Care Tour Driver Name Role Phone Anisa Cummings MD, MPH Primary Care Provider + Encounter Details Date Type Department Care Team (Late st Contact Info) Description 05/31/[address] [address] Social History Tobacco Use Types Packs/Day Years [...] (Late st Contact Info) Description 07/09/[address] [address] 03/01/2026 1:15 PM EDT Appointment [facility], Mammography- [facility] [address] [place] [address] Phs Mammo Self, Referral documented as of this encounter Visit Diagnoses Not on filedocumented in this encounter Care Teams Tour Driver Relationship Specialty Start Date End Date Anisa Cummings MD, MPH [address] [place] [phone] [email or web address] PCP - General Family Medicine 01/11/18 documented as of this encounter Additional Source Comments The information contained in this document represents components of the legal health record. It is not the complete legal health record.[facility]
--- OUTSIDE RECORDS SUMMARY | 2025-10-14 14:34 | XMS_ITS | Encounter Summary ---
Author Organization [facility] Address [address] [facility] [address] [place] [phone] Phone Care Team Providers Care Steamboat Inspector Name Role Phone Anisa Cummings MD, MPH Primary Care Provider + Encounter Details Date Type Department Care Team (Late st Contact Info) Description 05/22/2022 Procedure Pass [address] [address] Social History Tobacco Use Types Packs/Day Years [...] Contact Info) Description 07/09/2025 Procedure Pass [address] [address] 03/01/2026 1:15 PM EDT Appointment [address] [address] Phs Mammo Self, Referral documented as of this encounter Visit Diagnoses Not on filedocumented in this encounter Care Teams Steamboat Inspector Relationship Specialty Start Date End Date Anisa Cummings MD, MPH [address] [place] [phone] [email or web address] PCP - General Family Medicine 01/11/18 documented as of this encounter Additional Source Comments The information contained in this document represents components of the legal health record. It is not the complete legal health record.[facility]
--- OUTSIDE RECORDS SUMMARY | 2025-10-14 14:34 | XMS_ITS | Encounter Summary ---
Author Organization [facility] Address [address] [facility] [address] [place] [phone] Phone Care Team Providers Care Policy Value Calculator Name Role Phone Anisa Cummings MD, MPH Primary Care Provider + Encounter Details Date Type Department Care Team (Late st Contact Info) Description 09/15/2024 Procedure Pass [facility], Ct Scan - [address] [address] Social History Tobacco Use Types Packs/Day Years [...] 1:39 PM EST Priya Courtney, GISELLA * [place] Suicide Severity Rating Scale (Screener/Recent Self-Report) Question [...] st Contact Info) Description 07/09/2025 Procedure Pass [address] [address] 03/01/2026 1:15 PM EDT Appointment [address] [address] Phs Mammo Self, Referral documented as of this encounter Visit Diagnoses Not on filedocumented in this encounter Care Teams Policy Value Calculator Relationship Specialty Start Date End Date Anisa Cummings MD, MPH [address] [place] [phone] [email or web address] PCP - General Family Medicine 01/11/18 documented as of this encounter Additional Source Comments The information contained in this document represents components of the legal health record. It is not the complete legal health record.[facility]
--- OUTSIDE RECORDS SUMMARY | 2025-10-14 14:34 | XMS_ITS | Encounter Summary ---
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 Name Role Phone Anisa Cummings MD, MPH Primary Care Provider + Encounter Details Date Type Department Care Team (Late st Contact Info) Description 09/15/2024 Procedure Pass [facility], Ct Scan - [address] [address] Social History Tobacco Use Types Packs/Day Years [...] 1:39 PM EST Priya Courtney, GISELLA * [place] Suicide Severity Rating Scale (Screener/Recent Self-Report) Question [...] st Contact Info) Description 07/09/2025 Procedure Pass [address] [address] 03/01/2026 1:15 PM EDT Appointment [address] [address] Phs Mammo Self, Referral documented as of this encounter Visit Diagnoses Not on filedocumented in this encounter Care Teams Hatchery Laborer Relationship Specialty Start Date End Date Anisa Cummings MD, MPH [address] [place] [phone] [email or web address] PCP - General Family Medicine 01/11/18 documented as of this encounter Additional Source Comments The information contained in this document represents components of the legal health record. It is not the complete legal health record.[facility]
== END 2025-10-14 11:03 | disposition home or self-care (01) ==
LOC: HO.HMGAL 11:03
PROVIDERS: PCP Family Medicine; Visit Provider Registered Nurse Emergency
DX: J30.89 Other allergic rhinitis (principal)
CPT/HCPCS: 95117; 95165